=== PATIENT | female | born 1990 | race Two or more races ===

== ENCOUNTER 2024-02-19 14:23 | Emergency (ER) | payer OTHER ==
[~2024-02-19] VITALS: Ht 152.4 cm; Wt 47.6 kg
[2024-02-19] MEDS ORDERED: KETOROLAC TROMETHAMINE 10 MG TABLET PO ONE (16:00)
[2024-02-19 16:23] LABS: HEMATOCRIT 39.9 % (36.0-45.00); HEMOGLOBIN 13.7 g/dL (12.0-15.00); MEAN CORPUSCULAR HEMOGLOBIN 32.6 pg (27.00-32.0); MEAN CORPUSCULAR HGB CONC 34.3 g/dl (32.0-36.0); PLATELET COUNT 207 K/uL (150-450); RED CELL DISTRIBUTION WIDTH 13.5 % (11.5-14.5)
== END 2024-02-19 19:29 | disposition home or self-care (01) ==
LOC: ER 14:23
PROVIDERS: Nurse Practitioner Family
DX: S00.12XA Contusion of left eyelid and periocular area, initial encounter (principal); Y04.0XXA Assault by unarmed brawl or fight, initial encounter; Y93.9 Activity, unspecified; Y92.9 Unspecified place or not applicable; Z91.09 Other allergy status, other than to drugs and biological substances